=== PATIENT | female | born 2000 | race Caucasian/White ===

== ENCOUNTER 2018-09-14 21:45 | Emergency (ER) | payer OTHER ==
[~2018-09-14] VITALS: Ht 162.6 cm; Wt 78.6 kg
[2018-09-14] MEDS ORDERED: DIPH,PERTUSS(ACELL),TET VAC/PF 0.5 ML IM-VACC ONE ×2 (22:00→22:15)
[2018-09-14 22:15] LABS: BASOPHILS # (AUTO) 0.01 x10^3/uL (0-0.3); BASOPHILS % (AUTO) 0 % (0-1); EOSINOPHILS % (AUTO) 1 % (1-7); LYMPHOCYTES # (AUTO) 2.47 x10^3/uL (1-6.1); LYMPHOCYTES % (AUTO) 29 % (22-44); MD NO; MEAN CORPUSCULAR HEMOGLOBIN 28.1 pg (27.0-34.8); MEAN CORPUSCULAR HGB CONC 33.5 g/dL (32.4-35.8); MEAN CORPUSCULAR VOLUME 83.9 fL (80-100); MEAN PLATELET VOLUME 8.4 fL (7.4-10.4); MONOCYTES # (AUTO) 0.58 x10^3/uL (0-1.4); MONOCYTES % (AUTO) 7 % (2-9); NEUTROPHILS # (AUTO) 5.42 x10^3/uL (1.8-8.0); NEUTROPHILS % (AUTO) 63 % (42-75); PLATELET COUNT 224 x10^3/uL (130-400); RED BLOOD COUNT 4.78 x10^6/uL (3.82-5.3); RED CELL DISTRIBUTION WIDTH 14.4 % (9.6-15.2)
[2018-09-14 22:25] LABS: ALBUMIN 4.2 g/dL (3.4-5.0); ANION GAP 7 mmol/L (5-15); CALCIUM 8.9 mg/dL (8.5-10.1); CHLORIDE 107 mmol/L (98-107); CREATININE 0.81 mg/dL (0.55-1.02)
[2018-09-14 22:29] LABS: ACETAMINOPHEN < 2 mcg/mL (10-30); SALICYLATE LEVEL < 1.7 mg/dL (2.8-20.0)
[2018-09-14 22:34] LABS: AMPHETAMINE SCREEN, URINE Negative (Negative); BARBITURATE SCREEN, URINE Negative (Negative); BENZODIAZEPINE SCREEN, URINE Negative (Negative); CANNABINOID SCREEN, URINE Positive (Negative); COCAINE SCREEN, URINE Negative (Negative); METHADONE SCREEN, URINE Negative (Negative); OPIATE SCREEN, URINE Negative (Negative)
[2018-09-15] MEDS ORDERED: BACITRACIN ZINC OINT 500U/GM, 0.9 GM ONE ×2 (00:05)
--- NOTE | 2018-09-15 00:10 | NUR ---
EDT AT BEDSIDE TO CLEAN AND DRESS WOUND.
[2018-09-15 00:24] VITALS: BP 124/74
--- NOTE | 2018-09-15 00:24 | NUR ---
Patient/Caregiver given discharge instructions, and belongings back, and they have confirmed that they understand the instructions. Patient ambulatory with steady gait.
== END 2018-09-15 00:32 | disposition home or self-care (01) ==
LOC: ED 23:28
DX: S51.812A Laceration without foreign body of left forearm, initial encounter (principal); F41.1 Generalized anxiety disorder; X83.8XXA Intentional self-harm by other specified means, initial encounter; Y93.89 Activity, other specified; Y92.89 Other specified places as the place of occurrence of the external cause; Y99.8 Other external cause status
CPT/HCPCS: 36415; 80048; 80307; 80329; 81025; 82040; 85025; 90471; 90715; G0480

== ENCOUNTER 2018-12-05 02:44 | Emergency (ER) | payer SELFPAY ==
[~2018-12-05] VITALS: Ht 162.6 cm; Wt 80.2 kg
--- NOTE | 2018-12-05 03:47 | NUR ---
PT HERE FOR LACERATIONS TO LEFT ARM. PT SAYS HER BIPOLAR AND SCHISOPHENIA RAN INTO EACHOTHER. BLEEDING CONTROLLED. PT IN HOSPITAL GOWN AND BELONGINGS IN BAG. BOYFRIEND AT BEDSIDE. OK PER K[place].
[2018-12-05] MEDS ORDERED: LIDOCAINE-MPF 1%, 5ML INFIL ONE (04:00)
[2018-12-05 04:33] LABS: ACETAMINOPHEN < 2 mcg/mL (10-30); SALICYLATE LEVEL < 1.7 mg/dL (2.8-20.0)
--- NOTE | 2018-12-05 04:40 | NUR ---
PA AT BEDSIDE.
[2018-12-05] MEDS ORDERED: LIDOCAINE-MPF 1%, 5ML ONE ×2 (04:49→04:50)
--- NOTE | 2018-12-05 05:51 | NUR ---
PA AND TECH AT BEDSIDE TO IRRIGATE
[2018-12-05] MEDS ORDERED: BACITRACIN ZINC OINT 500U/GM, 0.9 GM ONE (06:04)
[2018-12-05 06:44] VITALS: BP 129/81
--- NOTE | 2018-12-05 06:44 | NUR ---
Patient given discharge instructions and they have confirmed that they understand the instructions. Patient ambulatory with steady gait.
== END 2018-12-05 06:46 | disposition home or self-care (01) ==
LOC: ED 06:35
DX: S51.812A Laceration without foreign body of left forearm, initial encounter (principal); S51.811A Laceration without foreign body of right forearm, initial encounter; S71.112A Laceration without foreign body, left thigh, initial encounter; S71.111A Laceration without foreign body, right thigh, initial encounter; F32.9 Major depressive disorder, single episode, unspecified; X78.8XXA Intentional self-harm by other sharp object, initial encounter; Y93.89 Activity, other specified; Y92.89 Other specified places as the place of occurrence of the external cause; Y99.8 Other external cause status
CPT/HCPCS: 12032; 36415; 80307; 80329; 84703; 99284; G0480